=== PATIENT | male | born 1935 | race Caucasian/White ===

== ENCOUNTER 2018-07-04 23:13 | Observation (INO) ==
[2018-07-04] MEDS ORDERED: SODIUM CHLORIDE 0.9% 500 ML IV STA (23:44)
[2018-07-04] MEDS ORDERED: KETOROLAC 30 MG/1 ML VIAL IV STA (23:44)
[2018-07-04] MEDS ORDERED: ORPHENADRINE 60 MG/2 ML VIAL IV STA (23:44)
[2018-07-04] MEDS ORDERED: ACETAMINOPHEN 500 MG TABLET PO STA (23:44)
[2018-07-04 23:51] LABS: Basophils # 0.1 10*3/uL (0.0-0.2); Basophils % 0.2 % (0.0-0.8); Eosinophils # 0.1 10*3/uL (0.0-0.87); Eosinophils % 0.4 % (0.00-10.9); Hematocrit 36.2 VOL% (42.0-52.0); Hemoglobin 11.6 GM/DL (14.0-18.0); Immature Granulocytes % 1.7 %; Immature Granulocytes Absolute 0.38 #; Lymphocytes # 0.8 10*3/uL (1.4-4.0); Lymphocytes % 3.6 % (21.2-54.2); Mean Corpuscular Hemoglobin 30 PG (27-34); Mean Platelet Volume 10.3 FL (9.6-12.0); Monocytes # 1.1 10*3/uL (0.11-0.8); Neutrophils # 19.5 10*3/uL (1.4-7.4); Neutrophils % 89.1 % (38.7-73.9); Platelet Count 181 T/CUMM (130-400); Red Blood Count 3.81 MC/CUMM (3.8-5.5); Red Cell Distribution Width 14.1 % (9.3-17.3); White Blood Count 21.9 T/CUMM (4-12)
[2018-07-05 00:04] LABS: INR 2.4; Partial Thromboplastin Time 39.4 SECS (0-40)
[2018-07-05 00:14] LABS: Amylase 29 U/L (25-115); Troponin I < 0.015 NG/ML (0.00-0.045)
[2018-07-05 00:19] LABS: PT Patient Result 26.2 SECS
[2018-07-05] MEDS ORDERED: LEVOFLOXACIN INJ 750 MG in PREMIX 1 EACH IV STA (00:43)
[2018-07-05] MEDS ORDERED: SODIUM CHLORIDE 0.9% 500 ML IV STA (00:43)
[2018-07-05 00:51] LABS: Apearance,Urine CLEAR (Clear); Bilirubin,Urine Negative (Negative); Blood, Urine Negative (Negative); Glucose,Urine (UA) 50 mg/dL (Negative); Ketones,Urine Negative (Negative); Mucus,Urine Occasional /LPF (Occasional); Nitrite,Urine Negative (Negative); Protein,Urine Negative; RBC,Urine 2 /HPF (0-4); Urine Color Yellow (Yellow); Urine Urobilinogen < 2.0 EU/DL (0.2-1.0); WBC,Urine 1 /HPF (0-6)
[2018-07-05 01:10] LABS: Anisocytosis 1+; Band Neutrophils 4 % (0-10); Eosinophils 1 % (0-10); Hypochromasia Slight; Lymphocytes 3 % (20-55); Microcytosis Slight; Platelet Estimate Adequate; Segmented Neutrophils 85 % (50-85); Total Cells Counted 100
[2018-07-05 01:12] LABS: Alanine Aminotransferase 26 U/L (16-61); Albumin 3.5 G/DL (3.4-5.0); Alkaline Phosphatase 75 U/L (45-117); Aspartate Amino Transferase 18 U/L (0-37); Blood Urea Nitrogen 24 MG/DL (7-18); Calcium 8.1 MG/DL (8.5-10.1); Glucose 200 MG/DL (74-106); Osmolality,Calculated 288.4 MOS/KG (273-304); Potassium 4.6 MMOL/L (3.5-5.1); Sodium 140 MMOL/L (136-145); Total Protein 6.3 G/DL (6.4-8.3)
[2018-07-05] MEDS ORDERED: DEXTROSE 50% 25 GM/50 ML SYRINGE IV PRN (02:49)
[2018-07-05] MEDS ORDERED: ONDANSETRON 4 MG/2 ML VIAL IV PRN (02:49)
[2018-07-05] MEDS ORDERED: diphenhydrAMINE CAP 25 MG CAPSULE PO PRN (02:49)
[2018-07-05] MEDS ORDERED: guaiFENesin/DM ER 600-30 MG TABLET PO PRN (02:49)
[2018-07-05] MEDS ORDERED: MORPHINE 4 MG/1 ML VIAL IV PRN (02:49)
[2018-07-05] MEDS ORDERED: ACETAMINOPHEN 325 MG TABLET PO PRN (02:49)
[2018-07-05] MEDS ORDERED: NICOTINE 21 MG/24 HR PATCH TRANSDERM PRN (02:49)
[2018-07-05] MEDS ORDERED: GLUCAGON 1 MG VIAL IM PRN (02:49)
[2018-07-05] MEDS ORDERED: BISACODYL 5 MG TABLET PO PRN (02:49)
[2018-07-05] MEDS: SODIUM CHLORIDE 0.9% 1,000 ML IV SCH ×2 (05:22→22:44)
[2018-07-05 05:57] LABS: Basophils # 0.1 10*3/uL (0.0-0.2); Basophils % 0.3 % (0.0-0.8); Eosinophils # 0.1 10*3/uL (0.0-0.87); Eosinophils % 0.5 % (0.00-10.9); Hematocrit 32.8 VOL% (42.0-52.0); Hemoglobin 10.3 GM/DL (14.0-18.0); Immature Granulocytes % 1.9 %; Immature Granulocytes Absolute 0.28 #; Lymphocytes # 0.7 10*3/uL (1.4-4.0); Lymphocytes % 4.9 % (21.2-54.2); Mean Corpuscular HGB Conc 31.4 GM/DL (32-36); Mean Corpuscular Hemoglobin 30 PG (27-34); Mean Corpuscular Volume 96.2 FL (87-102); Mean Platelet Volume 9.8 FL (9.6-12.0); Monocytes # 0.8 10*3/uL (0.11-0.8); Monocytes % 5.7 % (1.7-12.7); Neutrophils # 12.8 10*3/uL (1.4-7.4); Neutrophils % 86.7 % (38.7-73.9); Platelet Count 135 T/CUMM (130-400); Red Blood Count 3.41 MC/CUMM (3.8-5.5); Red Cell Distribution Width 14.2 % (9.3-17.3); White Blood Count 14.8 T/CUMM (4-12)
[2018-07-05 06:36] LABS: Lymphocytes 5 % (20-55); Segmented Neutrophils 92 % (50-85); Total Cells Counted 100
[2018-07-05 06:37] LABS: Anisocytosis 1+; Hypochromasia Slight; Platelet Estimate Adequate
[2018-07-05] MEDS: INSULIN REGULAR 100 UNIT/ML SUBCUT SCH ×4 (08:43→22:14)
[2018-07-05] MEDS: PANTOPRAZOLE 40 MG TABLET PO SCH (08:45)
[2018-07-05] MEDS ORDERED: FLUTICASONE 50 MCG NASAL SPRAY 16 GM BOTTLE BOTH NARES PRN (15:48)
[2018-07-05] MEDS: ASPIRIN EC 81 MG TABLET PO SCH (17:14)
[2018-07-05] MEDS: LEVOFLOXACIN 500 MG TABLET PO SCH (17:15)
[2018-07-05] MEDS ORDERED: WARFARIN 5 MG TABLET PO SCH (18:00)
[2018-07-05] MEDS: SODIUM BICARBONATE 650 MG TABLET PO SCH (22:16)
[2018-07-05] MEDS: GABAPENTIN 600 MG TABLET PO SCH (22:16)
[2018-07-06 05:08] LABS: INR 2.3
[2018-07-06 05:20] LABS: PT Patient Result 25.1 SECS
[2018-07-06] MEDS: INSULIN REGULAR 100 UNIT/ML SUBCUT SCH ×2 (08:34→13:15)
[2018-07-06] MEDS: SODIUM BICARBONATE 650 MG TABLET PO SCH (08:47)
[2018-07-06] MEDS: LEVOFLOXACIN 500 MG TABLET PO SCH (08:48)
[2018-07-06] MEDS: PANTOPRAZOLE 40 MG TABLET PO SCH (08:48)
[2018-07-06] MEDS: ASPIRIN EC 81 MG TABLET PO SCH (08:48)
[2018-07-06] MEDS: GABAPENTIN 600 MG TABLET PO SCH (08:48)
[2018-07-06] MEDS ORDERED: DIGOXIN 0.125 MG TABLET PO SCH (09:00)
[2018-07-06] MEDS ORDERED: LEVOFLOXACIN INJ 750 MG in PREMIX 1 EACH IV SCH (09:00)
[2018-07-06] MEDS ORDERED: ALLOPURINOL 100 MG TABLET PO SCH (09:00)
[2018-07-06] MEDS ORDERED: CYANOCOBALAMIN 500 MCG TABLET PO SCH (09:00)
[2018-07-06] MEDS ORDERED: GABAPENTIN 600 MG TABLET PO SCH (12:00)
[2018-07-06 12:34] VITALS: BP 167/73
== END 2018-07-06 14:25 | disposition home or self-care (01) ==
LOC: N.EDINP 23:13 → N.ED 23:13 → N.2E 07-05 04:38
PROVIDERS: ADMIT Hospitalist; ATTEND Hospitalist